=== PATIENT | female | born 1955 | race Caucasian/White ===

== ENCOUNTER → 2024-03-22 | Outpatient (CLI) | payer BC | END | disposition home or self-care (01) | LOC: MRI 11:31 | PROVIDERS: ATTEND Physician Assistant Surgical | DX: S43.492A Other sprain of left shoulder joint, initial encounter (principal); S43.082A Other subluxation of left shoulder joint, initial encounter; M67.814 Other specified disorders of tendon, left shoulder; M75.122 Complete rotator cuff tear or rupture of left shoulder, not specified as traumatic; M85.612 Other cyst of bone, left shoulder; M19.012 Primary osteoarthritis, left shoulder; M75.82 Other shoulder lesions, left shoulder; M25.512 Pain in left shoulder; X58.XXXA Exposure to other specified factors, initial encounter; Y93.89 Activity, other specified; Y92.89 Other specified places as the place of occurrence of the external cause; Y99.8 Other external cause status | CPT/HCPCS: 73221 ==